=== PATIENT | female | born 1975 | race Two or more races ===

== ENCOUNTER 2024-07-23 05:50 | Day surgery (SDC) | payer OTHER ==
[2024-07-19 12:42] VITALS: BMI 38.0
[2024-07-23] MEDS ORDERED: LIDOCAINE HCL/PF 2% SDV 5ML VIAL ONE (07:54)
[2024-07-23] MEDS ORDERED: MIDAZOLAM HCL 2 MG/2 ML SINGLE DOSE VIAL ONE (07:55)
[2024-07-23] MEDS ORDERED: PROPOFOL 20 ML ONE (07:55)
[2024-07-23] MEDS ORDERED: LIDOCAINE HCL 1%, 10 MG/ML (20ML VIAL) ONE ×2 (09:06→10:09)
[2024-07-23] MEDS ORDERED: DEXAMETHASONE SOD PHOSPHATE 4 MG/1 ML VIAL ONE ×2 (09:06→09:34)
[2024-07-23] MEDS ORDERED: GENTAMICIN SO4 80 MG/2 ML VIAL ONE (09:06)
[2024-07-23] MEDS ORDERED: BUPIVACAINE HCL/PF 0.5% (5MG/ML) 10 ML VIAL ONE (09:07)
[2024-07-23] MEDS ORDERED: ceFAZolin SODIUM 1 GM VIAL ONE (09:34)
[2024-07-23] MEDS: ceFAZolin 2 GRAM PREMIX BAG IVPB ONE ×2 (09:36)
[2024-07-23] MEDS ORDERED: oxyCODONE HCL 5 MG TABLET PO PRN ×2 (09:46)
[2024-07-23] MEDS ORDERED: PROMETHAZINE HCL 25 MG/1 ML VIAL IVPB PRN (09:46)
[2024-07-23] MEDS ORDERED: ONDANSETRON 4 MG/2 ML VIAL IVPUSH PRN (09:46)
[2024-07-23] MEDS ORDERED: KETOROLAC TROMETHAMINE 30 MG/1 ML VIAL ONE (09:58)
[2024-07-23] MEDS ORDERED: LACTATED RINGERS SOLUTION 1,000 ML IV SCH (10:00)
[2024-07-23] MEDS: BENZOIN 118 ML SPRAY.PUMP TP ONE (10:39)
[2024-07-23] MEDS: ACETAMINOPHEN 1000 MG/100 ML BAG IVPB ONE (11:05)
[2024-07-23] MEDS ORDERED: ACETAMINOPHEN INJECTION 100 ML ONE (11:05)
[2024-07-23 12:36] VITALS: RESP 20; TEMP 97.1
[2024-07-23 14:18] VITALS: BP 131/73; PULSE 74
== END 2024-07-23 15:11 | disposition home or self-care (01) ==
LOC: JASU-SURG 05:50
PROVIDERS: ATTEND Podiatrist
PROC: 0QSN04Z Reposition Right Metatarsal with Internal Fixation Device, Open Approach (ICD-10-PCS; principal; 2024-07-23 09:30)
PROC: 0QSN04Z Reposition Right Metatarsal with Internal Fixation Device, Open Approach (ICD-10-PCS; 2024-07-23 09:30)
DX: M20.11 Hallux valgus (acquired), right foot (principal); M20.41 Other hammer toe(s) (acquired), right foot
CPT/HCPCS: 73630-TC-RT-FY; 81025; 88304-TC; 88305-TC; 88311-TC; 94760; C1713